=== PATIENT | female | born 1965 | race Caucasian/White ===

== ENCOUNTER 2016-12-20 17:53 | Emergency (ER) | payer OTHER ==
[2016-12-20] MEDS ORDERED: Ibuprofen TAB* 600 MG PO ONE (18:39)
--- NOTE | 2016-12-20 19:51 | UC ---
Knee Pain HPI - HPI Summary HPI Summary: r knee pain---has had three separate injuries over the past several weeks related to twisted her knee and continued stiffness-to day the knee cap felt like it misaligned and she could not move her leg - History of Current Complaint Chief Complaint: UCLowerExtremity Stated Complaint: RIGHT KNEE INJURY Time Seen by Provider: 12/20/16 18:41 Hx Obtained From: Patient Hx Last Menstrual Period: 12/10/16 ?: No Onset/Duration: Sudden Onset, Lasting Hours, Still Present Severity Initially: Moderate Severity Currently: Moderate Location Of Injury: right knee Pain Intensity: 8 Pain Scale Used: 0-10 Numeric Character: Aching, Throbbing, Stiffness Aggravating Factor(s): Movement, Weight Bearing Alleviating Factor(s): Rest, Position Associated Signs And Symptoms: Positive: Negative Able to Bear Weight: Yes - with pain/limp - Allergies/Home Medications Allergies/Adverse Reactions: Allergies Allergy/AdvReac Type Severity Reaction Status Date / Time No Known Allergies Allergy Verified 12/20/16 18:43 Home Medications: Home Medications NK [No Home Medications Reported] 12/20/16 [History Confirmed 12/20/16] PMH/Surg Hx/FS Hx/Imm Hx Previously Healthy: No Cardiovascular History Of: Reports: Hypertension - is no longer treated as bp was under control - Surgical History Surgical History: Yes Surgery Procedure, Year, and Place: 2004 - D&C, FIBROID REMOVAL - Family History Known Family History: Positive: None - Social History Occupation: Employed Full-time Lives: With Family Alcohol Use: None Substance Use Type: None Smoking Status (MU): Never Smoked Tobacco Review of Systems Constitutional: Negative Skin: Negative Eyes: Negative ENT: Negative Respiratory: Negative Cardiovascular: Negative Gastrointestinal: Negative Genitourinary: Negative Motor: Negative Neurovascular: Negative Musculoskeletal: Negative, Arthralgia - right knee Neurological: Negative Psychological: Negative All Other Systems Reviewed And Are Negative: Yes Physical Exam Triage Information Reviewed: Yes Appearance: Well-Appearing, Well-Nourished, Pain Distress Vital Signs: Initial Vital Signs Temp 98.2 F 12/20/16 18:31 Pulse 87 12/20/16 18:31 Resp 14 12/20/16 18:31 BP 196/96 12/20/16 18:31 Pulse Ox 97 12/20/16 18:31 Vital Signs Reviewed: Yes Eye Exam: Normal Eyes: Positive: Conjunctiva Clear ENT Exam: Normal ENT: Positive: Normal ENT inspection, Hearing grossly normal. Negative: Nasal congestion, Nasal drainage, Trismus, Muffled/hoarse voice Dental Exam: Normal Neck exam: Normal Neck: Positive: Supple, Nontender Respiratory Exam: Normal Respiratory: Positive: Chest non-tender, Lungs clear, Normal breath sounds, No respiratory distress, No accessory muscle use Cardiovascular Exam: Normal Cardiovascular: Positive: RRR, No Murmur, Pulses Normal, Brisk Capillary Refill Musculoskeletal Exam: Normal Musculoskeletal: Positive: Strength Intact, ROM Intact, No Edema Neurological Exam: Normal Neurological: Positive: Alert, Muscle Tone Normal Psychological Exam: Normal Skin Exam: Normal Diagnostics - Laboratory Diagnostic Studies Completed/Ordered: knee effusion (R) Re-Evaluation - Re-Evaluation First Eval Change: Improved - decrease pain with immob. bp remains high Knee Pain Course/Dx - Course Course Of Treatment: rice, immob. crutches, ibuprofen, follow with ortho a for knee and pcp for blood pressure - Differential Dx/Diagnosis Differential Diagnosis/HQI/PQRI: Contusion, Fracture (Closed), Internal Derangement Of Knee, Sprain, Strain Provider Diagnoses: Right knee effusion, hypertension no current diagnosis Discharge - Discharge Plan Condition: Stable Disposition: HOME Patient Education Materials: Ibuprofen (By mouth), Crutch Instructions (ED), Swollen Knee Joint (ED), DASH Eating Plan (ED), Hypertension (ED), RICE Therapy (ED), Knee Immobilizer (ED), Non Weight Bearing Activity (ED) Referrals: Corwin Lozano MD [Medical Doctor] - 4 Days Bonita Olivia MD [Medical Doctor] - 4 Days Jamir Moreira DO [Primary Care Provider] - 1 Week (for bp recheck)
--- NOTE | 2016-12-20 20:00 | RAD ---
Indication: Right knee pain after knee injury. 4 views of the right knee demonstrates joint effusion. Degenerative changes of the patellofemoral joint is noted. No fracture is identified. IMPRESSION: Joint effusion. Degenerative changes of the patellofemoral joint are noted.
== END 2016-12-20 20:44 | disposition home or self-care (01) ==
LOC: UCCORT 17:53
DX: M25.461 Effusion, right knee (principal); I10 Essential (primary) hypertension
CPT/HCPCS: 99203; A9270-GY; G0463

== ENCOUNTER 2019-10-04 14:18 | Emergency (ER) | payer OTHER ==
[2019-10-04 14:52] VITALS: BP 172/99
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
== END 2019-10-04 16:15 | disposition home or self-care (01) ==
LOC: UCCORT 14:18
DX: R51 Headache (principal); S16.1XXA Strain of muscle, fascia and tendon at neck level, initial encounter; I10 Essential (primary) hypertension; E78.5 Hyperlipidemia, unspecified; Z79.899 Other long term (current) drug therapy; Z79.82 Long term (current) use of aspirin; V89.2XXA Person injured in unspecified motor-vehicle accident, traffic, initial encounter; Y92.9 Unspecified place or not applicable
CPT/HCPCS: 70450; 72125; 99213; G0463